=== PATIENT | male | born 1980 | race Caucasian/White ===

== ENCOUNTER 2017-11-14 15:38 | Emergency (ER) | payer MEDICAID ==
[~2017-11-14] VITALS: Ht 175.3 cm; Wt 75.0 kg
[2017-11-14 16:10] VITALS: BP 117/80
== END 2017-11-14 17:28 | disposition home or self-care (01) ==
LOC: ER 15:38
DX: K64.9 Unspecified hemorrhoids (principal); K62.5 Hemorrhage of anus and rectum
CPT/HCPCS: 99283

== ENCOUNTER 2018-04-06 09:03 | Emergency (ER) | payer MEDICAID ==
[~2018-04-06] VITALS: Ht 172.7 cm; Wt 81.0 kg
[2018-04-06 09:19] VITALS: BP 140/86
== END 2018-04-06 12:37 | disposition home or self-care (01) ==
LOC: ER 10:09
DX: A64 Unspecified sexually transmitted disease (principal)
CPT/HCPCS: 99281

== ENCOUNTER 2018-05-09 01:40 | Emergency (ER) | payer MEDICAID ==
[~2018-05-09] VITALS: Ht 175.3 cm; Wt 72.0 kg
[2018-05-09 03:00] LABS: BASOPHILS % 0.4 % (0.0-2.0); EOSINOPHILS % 1.6 % (0.0-5.0); HEMATOCRIT. 49.2 % (42.0-52.0); HEMOGLOBIN. 16.9 g/dL (14.0-18.0); LYMPHOCYTES % 33.3 % (20.0-50.0); MEAN CORPUSCULAR HEMOGLOBIN 29.7 pg (28.0-32.0); MEAN CORPUSCULAR VOLUME 86.3 fL (80.0-94.0); MONOCYTES % 8.7 % (2.0-8.0); PLATELET 284 x1000/uL (130-400); RED CELL DISTRIBUTION WIDTH 13.3 % (11.6-14.6)
[2018-05-09 03:03] LABS: CHLORIDE 102 mEq/L (98-107)
[2018-05-09 03:06] LABS: PROTHROMBIN TIME 9.9 sec (9.1-11.1)
[2018-05-09 03:07] LABS: ETHANOL BLOOD < 10 mg/dL
[2018-05-09 04:09] LABS: CLARITY URINE CLEAR (CLEAR); COLOR URINE YELLOW (YELLOW); KETONES URINE TRACE (NEGATIVE); LEUKOCYTE ESTERASE URINE NEGATIVE (NEGATIVE); NITRITE URINE NEGATIVE (NEGATIVE); OCCULT BLOOD URINE NEGATIVE (NEGATIVE); PH URINE 5.5 (4.5-8.0); PROTEIN URINE NEGATIVE (NEGATIVE)
[2018-05-09 04:18] LABS: *AMPHETAMINES SCREEN URINE NEGATIVE (NEGATIVE); *BARBITURATES SCREEN URINE NEGATIVE (NEGATIVE); *BENZODIAZEPINES SCREEN URINE NEGATIVE (NEGATIVE); *COCAINE SCREEN URINE NEGATIVE (NEGATIVE); CANNABINOID URINE SCREEN NEGATIVE (NEGATIVE); METHADONE URINE SCREEN NEGATIVE (NEGATIVE); OPIATES URINE SCREEN NEGATIVE (NEGATIVE); PHENCYCLIDINE URINE SCREEN NEGATIVE (NEGATIVE)
[2018-05-09 06:31] VITALS: BP 123/94
== END 2018-05-09 06:34 | disposition home or self-care (01) ==
LOC: ER 01:40
DX: M79.18 Myalgia, other site (principal); R07.89 Other chest pain; G47.09 Other insomnia
CPT/HCPCS: 36415; 71045; 80053; 80305; 81003; 83690; 84484; 85025; 85610; 87186; 93005; 99284; Z7610